=== PATIENT | male | born 1995 | race Caucasian/White ===

== ENCOUNTER 2022-03-03 13:36 | Emergency (ER) | payer SELFPAY ==
[~2022-03-03] VITALS: Ht 170.2 cm; Wt 74.5 kg
[2022-03-03 14:10] VITALS: BP 118/57
--- NOTE | 2022-03-03 14:19 | NUR ---
Patient being evaluated by FAINA JAQUEZ at TRIAGE ROOM.
[2022-03-03] MEDS ORDERED: AMOX500C25 PO (14:21)
--- NOTE | 2022-03-03 14:50 | NUR ---
PT CLEARED FOR D/C BY FAINA JAQUEZ. PT NOT FOUND IN LOBBY/OUTSIDE. PT LEFT WITHOUT D/C PAPERS. RX OF AMOXICILLIN SENT TO [facility].
== END 2022-03-03 14:50 | disposition home or self-care (01) ==
LOC: MED 13:36
DX: K08.89 Other specified disorders of teeth and supporting structures (principal); Z79.899 Other long term (current) drug therapy
CPT/HCPCS: 99283